=== PATIENT | female | born 1990 | race Caucasian/White ===

== ENCOUNTER 2016-09-09 10:16 | Emergency (ER) | payer OTHER ==
--- NOTE | 2016-09-09 10:00 | CT ---
EXAMINATION TYPE: CT abdomen pelvis wo con DATE OF EXAM: 09/09/2016 9:21 AM COMPARISON: NONE HISTORY: Renal colic Automated exposure control for dose reduction was used. TECHNIQUE: Helical acquisition of images from the lung bases through the pelvis. FINDINGS: LUNG BASES: No significant abnormality is appreciated. Shunt tubing is present within the anterior ab dominal fat coursing into the abdomen on the right and into the pelvis at the distal tip AORTA: No significant abnormality is appreciated. LIVER/GB: Patient is post cholecystectomy. Liver shows no mass on this noncontrast exam. Liver is enl arged however. PANCREAS: No significant abnormality is seen. SPLEEN: Enlarged measuring greater than 14 cm in span. ADRENALS: Low dense mass is associated with the left adrenal gland measuring approximately 3.3 cm in greatest dimension but showing low-attenuation suggestive of fat. KIDNEYS: No hydronephrosis or renal stone REPRODUCTIVE ORGANS: No significant abnormality is seen. URINARY BLADDER: No significant abnormality is seen. BOWEL: No significant abnormality is seen. FREE AIR: No Free Air is visible. ASCITES: None visible. PELVIC ADENOPATHY: None visualized. RETROPERITONEAL ADENOPATHY: No Retroperitoneal Adenopathy visible. OSSEOUS STRUCTURES: No significant abnormality is seen. 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 POSTOP CHANGE. HEPATOSPLENOMEGALY. NONCONTRAST EXAM MAY LIMIT SENSITIV ITY.
[2016-09-09] MEDS ORDERED: PANTOPRAZOLE 40 MG/10 ML VIAL IVP STA (13:12)
[2016-09-09] MEDS ORDERED: HYDROmorphone 1 MG/ML 1 ML SYRINGE IVP STA (13:12)
[2016-09-09] MEDS ORDERED: METOCLOPRAMIDE 5 MG/ML 2 ML VIAL IVP STA (13:12)
[2016-09-09] MEDS ORDERED: SODIUM CHLORIDE 0.9% 500 ML IV STA (13:12)
[2016-09-09] MEDS ORDERED: SODIUM CHLORIDE 0.9% 1,000 ML IV STA (13:12)
--- NOTE | 2016-09-09 13:19 | ED ---
General Adult HPI - General Chief complaint: Recheck/Abnormal Lab/Rx Time Seen by Provider: 09/09/16 12:44 Source: patient, RN notes reviewed, old records reviewed Mode of arrival: ambulatory Limitations: no limitations - History of Present Illness Initial comments: Chief complaint history of present 18-year-old female who was sent to the emergency room after having a CAT scan without contrast of her abdomen. The patient was seen at the clinic yesterday with a complaint of right flank area pain. Radiates around toward the front. Associated mild nausea but no vomiting today one episode of diarrhea yesterday. Labs reported at the office yesterday were positive for blood in the urine. The patient's not complaining any frequency urgency or dysuria. Patient denies ever having had a previous kidney stone. She was sent here today for CAT scan without contrast rule out abdominal pathology. Radiologist states there was no evidence of any hydronephrosis or kidney stones. He does mention that on the adrenal there is a low dense masses associated with a left adrenal gland measuring approximately 3.3 cm. In greatest dimension but showing low attenuation suggestive of that. No other findings are significant other than enlarged liver enlarged spleen. Report was reviewed and made by Dr. Sewell - Related Data Home Medications Medication Instructions Recorded Confirmed Hydrocodone/Acetaminophen [[place] 1 tab PO TID PRN 09/09/16 09/09/16 10-325] Allergies Allergy/AdvReac Type Severity Reaction Status Date / Time sumatriptan [From Imitrex] Allergy Nausea & Verified 09/09/16 11:51 Vomiting sumatriptan succinate Allergy Nausea & Verified 09/09/16 11:51 [From Imitrex] Vomiting Review of Systems ROS Statement: Those systems with pertinent positive or pertinent negative responses have been documented in the HPI. Review of systems. No visual acuity or headache at this time no chest pain no shortness of breath. She has point specific area on her right flank area discomfort increases with palpation and twisting and turning over the area. It seems to radiate somewhat around the right. Patient reports she is oriented gallbladder removed and does not feel like gallbladder pain. Denies any injury that she can remember. No rashes noted. Though early shingles was discussed. Nausea no vomiting one episode of diarrhea. Generally feels somewhat fatigued lately as well. She did not get a flu shot this year. Decreased appetite. No cough. All systems are reviewed. Past medical problems significant for pseudotumor cerebri. She had a SERVICER [employer] MACHIN[employer] shunt placed which significantly improved and decrease the frequency of headaches but now she's been diagnosed with occipital headaches. Further evaluation by her neurologist to continue. The patient's other surgeries include a , cholecystectomy tonsils and adenoids and a pilonidal cyst. Family history mother had hypertension father diabetes. Within the family there is colon cancer, breast cancer and lung cancer. The patient does smoke strongly encouraged to stop for obvious reasons. She denies any alcohol use. ROS Other: All systems not noted in ROS Statement are negative. Past Medical History Additional Past Medical History / Comment(s): psudo tumor, vp customer development shunt History of Any Multi-Drug Resistant Organisms: None Reported Past Surgical History: Section, Cholecystectomy, Tonsillectomy Additional Past Surgical History / Comment(s): pilinidal cyst Past Psychological History: No Psychological Hx Reported Smoking Status: Current every day smoker Past Alcohol Use History: None Reported Past Drug Use History: None Reported General Exam - General Exam Comments Initial Comments: General: The patient is awake and alert, complaining of right flank area pain. Normally takes [place] for her occipital headaches. She ran out her [place] tablets last night. Mild nausea no vomiting. Persistent right flank pain increases with laying down slightly less when sitting forward. Vital signs show temperature 97.8 pulse 83 respiratory rate 20 pulse ox 97% room air blood pressure 143/85. Elevated systolic diastolic noted. Patient is following up with her family physician this week. Eye: Pupils are equal, round and reactive to light, extra-ocular movements are intact ; there is normal conjunctiva bilaterally. No signs of icterus. Ears, nose, mouth and throat: There are moist mucous membranes and no oral lesions. Neck: The neck is supple, there is no tenderness . Cardiovascular: There is a regular rate and rhythm. No murmur, rub or gallop is appreciated. Respiratory: Lungs are clear to auscultation, respirations are non-labored, breath sounds are equal. No wheezes, stridor, rales, or rhonchi. Gastrointestinal: Soft, non-distended, non-tender abdomen without masses or organomegaly noted. There is no rebound or guarding present. No CVA tenderness. Bowel sounds are unremarkable. Complains of nausea no vomiting. Back: No rash noted early shingles and would look for was discussed. Palpation approximately 5 inches ROM the mid thoracic spine was uncomfortable. Nothing palpable. Pain increases no area when she lays down on it or stretches the area. We did discuss discitis and musculoskeletal pain. The CAT scan done this morning does not show any evidence of hydronephrosis or kidney stones. Though the possibility of a passed the stone was discussed or there is still a stone that not seen. Musculoskeletal: Normal ROM, no tenderness, There is no pedal edema. There is no calf tenderness or swelling. Sensation intact. Pulses equal bilaterally 2+. Neurological: No neuro deficits. Skin: No skin rashes Limitations: no limitations Course Vital Signs 09/09/16 09/09/16 09/09/16 11:16 13:54 14:11 Temperature 97.8 F 98.2 F Pulse Rate 83 82 74 Respiratory 20 15 16 Rate Blood Pressure 143/85 117/73 117/73 O2 Sat by Pulse 97 98 96 Oximetry 09/09/16 15:44 Temperature 98.7 F Pulse Rate 77 Respiratory 14 Rate Blood Pressure 121/75 O2 Sat by Pulse 98 Oximetry Medical Decision Making - Medical Decision Making Medical decision making patient's white count 8.6 hemoglobin 16 hematocrit of 48 with a potassium 4.4, BUN is 8 creatinine 0.72 with a GFR greater than 60. Patient's glucose 124. Influenza AB reported to be negative. Urinalysis no signs of infection but there are 4 reds 1 white. Patient was advised to have repeat urinalysis done and make sure the blood goes way otherwise a CT with IV contrast will be suggested to rule out tumor within the kidneys. The patient does present as though she's had renal colic on the right side. We also discussed at length with look for for developing shingles. Patient be follow-up by her family doctor. - Lab Data Result diagrams: 09/09/16 13:45 09/09/16 13:45 Lab Results 09/09/16 09/09/16 09/09/16 Range/Units 12:43 13:45 13:45 WBC (3.8-10.6) k/uL RBC (3.80-5.40) m/uL Hgb (11.4-16.0) gm/dL Hct (34.0-46.0) % MCV (80.0-100.0) fL MCH (25.0-35.0) pg MCHC (31.0-37.0) g/dL RDW (11.5-15.5) % Plt Count (150-450) k/uL Neutrophils % % Lymphocytes % % Monocytes % % Eosinophils % % Basophils % % Neutrophils # (1.3-7.7) k/uL Lymphocytes # (1.0-4.8) k/uL Monocytes # (0-1.0) k/uL Eosinophils # (0-0.7) k/uL Basophils # (0-0.2) k/uL Sodium 142 (137-145) mmol/L Potassium 4.4 (3.5-5.1) mmol/L Chloride 105 (98-107) mmol/L Carbon Dioxide 26 (22-30) mmol/L Anion Gap 11 mmol/L BUN 8 (7-17) mg/dL Creatinine 0.72 (0.52-1.04) mg/dL Est GFR (MDRD) Af Amer >60 (>60 ml/min/1.73 sqM) Est GFR (MDRD) Non-Af >60 (>60 ml/min/1.73 sqM) Glucose 124 H (74-99) mg/dL Plasma Lactic Acid Logan (0.7-2.0) mmol/L Calcium 9.3 (8.4-10.2) mg/dL Total Bilirubin 0.7 (0.2-1.3) mg/dL AST 30 (14-36) U/L ALT 37 (9-52) U/L Alkaline Phosphatase 67 (38-126) U/L Total Protein 6.9 (6.3-8.2) g/dL Albumin 4.1 (3.5-5.0) g/dL Amylase 50 (30-110) U/L Lipase 39 (23-300) U/L Urine Color Yellow Urine Appearance Clear (Clear) Urine pH 6.5 (5.0-8.0) Ur Specific [place] 1.021 (1.001-1.035) Urine Protein Negative (Negative) Urine Glucose (UA) Negative (Negative) Urine Ketones Negative (Negative) Urine Blood Trace H (Negative) Urine Nitrite Negative (Negative) Urine Bilirubin Negative (Negative) Urine Urobilinogen <2.0 (<2.0) mg/dL Ur Leukocyte Esterase Negative (Negative) Urine RBC 4 (0-5) /hpf Urine WBC 1 (0-5) /hpf Ur Squamous Epith Cells 3 (0-4) /hpf Urine Mucus Rare H (None) /hpf Heterophile Antibody Negative (Negative) Influenza Type A RNA (Not Detectd) Influenza Type B (PCR) (Not Detectd) 09/09/16 09/09/16 09/09/16 Range/Units 13:45 13:45 13:45 WBC 8.6 (3.8-10.6) k/uL RBC 5.24 (3.80-5.40) m/uL Hgb 16.2 H (11.4-16.0) gm/dL Hct 48.7 H (34.0-46.0) % MCV 93.0 (80.0-100.0) fL MCH 30.9 (25.0-35.0) pg MCHC 33.2 (31.0-37.0) g/dL RDW 13.2 (11.5-15.5) % Plt Count 196 (150-450) k/uL Neutrophils % 69 % Lymphocytes % 25 % Monocytes % 3 % Eosinophils % 1 % Basophils % 1 % Neutrophils # 5.9 (1.3-7.7) k/uL Lymphocytes # 2.1 (1.0-4.8) k/uL Monocytes # 0.2 (0-1.0) k/uL Eosinophils # 0.1 (0-0.7) k/uL Basophils # 0.1 (0-0.2) k/uL Sodium (137-145) mmol/L Potassium (3.5-5.1) mmol/L Chloride (98-107) mmol/L Carbon Dioxide (22-30) mmol/L Anion Gap mmol/L BUN (7-17) mg/dL Creatinine (0.52-1.04) mg/dL Est GFR (MDRD) Af Amer (>60 ml/min/1.73 sqM) Est GFR (MDRD) Non-Af (>60 ml/min/1.73 sqM) Glucose (74-99) mg/dL Plasma Lactic Acid Logan 1.7 (0.7-2.0) mmol/L Calcium (8.4-10.2) mg/dL Total Bilirubin (0.2-1.3) mg/dL AST (14-36) U/L ALT (9-52) U/L Alkaline Phosphatase (38-126) U/L Total Protein (6.3-8.2) g/dL Albumin (3.5-5.0) g/dL Amylase (30-110) U/L Lipase (23-300) U/L Urine Color Urine Appearance (Clear) Urine pH (5.0-8.0) Ur Specific [place] (1.001-1.035) Urine Protein (Negative) Urine Glucose (UA) (Negative) Urine Ketones (Negative) Urine Blood (Negative) Urine Nitrite (Negative) Urine Bilirubin (Negative) Urine Urobilinogen (<2.0) mg/dL Ur Leukocyte Esterase (Negative) Urine RBC (0-5) /hpf Urine WBC (0-5) /hpf Ur Squamous Epith Cells (0-4) /hpf Urine Mucus (None) /hpf Heterophile Antibody (Negative) Influenza Type A RNA Not Detected (Not Detectd) Influenza Type B (PCR) Not Detected (Not Detectd) Disposition Clinical Impression: Right flank pain Disposition: HOME SELF-CARE Condition: Stable Instructions: Flank Pain (ED) Additional Instructions: Take medications as directed. Get repeat urine done in 1 week to make sure there is no more blood and urine if there is a CT with IV contrast suggested rule out kidney pathology. Use Tylenol for pain. Time of Disposition: 16:04
[2016-09-09 14:02] LABS: Basophils # (A) 0.1 k/uL (0-0.2); Basophils % (A) 1 %; CH 31.4; CHCM 33.9; Eosinophils # (A) 0.1 k/uL (0-0.7); Eosinophils % (A) 1 %; HCT 48.7 % (34.0-46.0); HDW 2.65; HGB 16.2 gm/dL (11.4-16.0); Luc # (Auto) 0.14; Luc % (Auto) 2; Lymphocytes # (A) 2.1 k/uL (1.0-4.8); Lymphocytes % (A) 25 %; MCH 30.9 pg (25.0-35.0); MCHC 33.2 g/dL (31.0-37.0); Mean Platelet Volume 7.7; Monocytes # (A) 0.2 k/uL (0-1.0); Monocytes % (A) 3 %; Neutrophils # (A) 5.9 k/uL (1.3-7.7); Neutrophils % (A) 69 %; RBC 5.24 m/uL (3.80-5.40); RDW 13.2 % (11.5-15.5); WBC 8.6 k/uL (3.8-10.6); WBC (Perox) 8.54
[2016-09-09 14:13] LABS: Appearance,Urine Clear (Clear); Bilirubin,Urine Negative (Negative); Glucose,Urine (UA) Negative (Negative); Ketones,Urine Negative (Negative); Leukocyte Esterase,Urine Negative (Negative); Mucus,Urine Rare /hpf; Nitrite,Urine Negative (Negative); PH, Urine 6.5 (5.0-8.0); Particle Count 4204; Protein,Urine Negative (Negative); RBC,Urine 4 /hpf (0-5); Specific Gravity,Urine 1.021 (1.001-1.035); Squamous Epithelial Cell,Urine 3 /hpf (0-4); UA Billing (MACRO vs. MICRO) MICRO; Urobilinogen,Urine <2.0 mg/dL (<2.0); WBC,Urine 1 /hpf (0-5)
[2016-09-09 14:20] LABS: ALT 37 U/L (9-52); AST 30 U/L (14-36); Alkaline Phosphatase 67 U/L (38-126); Amylase 50 U/L (30-110); Anion Gap 11 mmol/L; Blood Urea Nitrogen 8 mg/dL (7-17); Calcium 9.3 mg/dL (8.4-10.2); Carbon Dioxide 26 mmol/L (22-30); Chloride 105 mmol/L (98-107); Glucose 124 mg/dL (74-99); Non-African American GFR(MDRD) >60 (>60 ml/min/1.73 sqM); Potassium 4.4 mmol/L (3.5-5.1); Sodium 142 mmol/L (137-145); Total Bilirubin 0.7 mg/dL (0.2-1.3); Total Protein 6.9 g/dL (6.3-8.2)
[2016-09-09 15:46] VITALS: PULSE 77
[2016-09-09 16:15] VITALS: BP 139/69; RESP 18; TEMP 97.7
== END 2016-09-09 16:16 | disposition home or self-care (01) ==
LOC: EC 10:16 → EDSTATUS 19:00
DX: R10.9 Unspecified abdominal pain (principal); R31.9 Hematuria, unspecified; E27.9 Disorder of adrenal gland, unspecified; R16.2 Hepatomegaly with splenomegaly, not elsewhere classified; G93.2 Benign intracranial hypertension; F17.200 Nicotine dependence, unspecified, uncomplicated; Z98.2 Presence of cerebrospinal fluid drainage device; Z88.8 Allergy status to other drugs, medicaments and biological substances; Z80.3 Family history of malignant neoplasm of breast; Z80.1 Family history of malignant neoplasm of trachea, bronchus and lung; Z80.0 Family history of malignant neoplasm of digestive organs
CPT/HCPCS: 36415; 80053; 82150; 83605; 83690; 85025; 86308; 81001; 87086; 87502; 74176; 99284; 96374; 96375 ×2; 96361 ×2; J2765; J1170; C9113

== ENCOUNTER → 2016-09-22 | Outpatient (CLI) | payer OTHER ==
--- NOTE | 2016-09-22 11:14 | CT ---
EXAMINATION TYPE: CT abdomen wo/w con DATE OF EXAM: 09/22/2016 11:00 AM COMPARISON: CT abdomen pelvis 02/23/[address] abdomen pelvis 09/09/2016 HISTORY: Left adrenal mass CONTRAST: Omni 300/100 ml was administered through a 20 gauge IV placed in the RAC. pt had mild redness with itching post injection, pt stated no other symptoms and no difficulty breath ing. pt was observed for 10-15 min post procedure with stable vitals, BP 127/90, HR 69, O2 99, discha rged per Dr. Jean and given instructions to take benedryl if needed. Unenhanced followed by contrast enhanced CT of the abdomen was performed. FINDINGS: LUNG BASES-: No visible nodule. No infiltrate. LIVER/GB: Cholecystectomy clips are in place. No space occupying hepatic lesion. Biliary tree is o f normal caliber. PANCREAS: No inflammation. No distinct mass. SPLEEN: No splenic enlargement. No lesion seen. ADRENALS: There is a stable left adrenal nodule dating back to 2008 which measures approximately 3.3 x 1.7 cm and demonstrates only minimal peripheral enhancement. There is central decreased attenuation seen compatible with fat content and left adrenal adenoma. Stable 7 mm right adrenal nodule dating b ack to 2008 as well.. KIDNEYS/BLADDER: No hydronephrosis. No nephrolithiasis. No disctinct renal mass. Urinary bladder g rossly unremarkable. BOWEL: Normal appendix. Normal bowel caliber. No inflammation. LYMPH NODES: No greater than 1cm abdominal or pelvic lymph nodes are appreciated. AORTA: No significant abnormality. OSSEOUS STRUCTURES: No significant abnormality is seen. OTHER: FLOOR COVERER shunt is noted to be in place. IMPRESSION: 1. Stable adrenal adenomas left greater than right.
== END | disposition home or self-care (01) ==
LOC: RADCTMAIN 09:16
PROVIDERS: ATTEND Family Medicine
DX: D35.02 Benign neoplasm of left adrenal gland (principal); D35.01 Benign neoplasm of right adrenal gland
CPT/HCPCS: 74170; Q9967

== ENCOUNTER 2017-10-10 09:13 | Emergency (ER) | payer OTHER ==
[2017-10-10 09:36] VITALS: RESP 18
--- NOTE | 2017-10-10 09:48 | ED ---
General Adult HPI - General Chief complaint: Nausea/Vomiting/Diarrhea Stated complaint: Vomiting Time Seen by Provider: 10/10/17 09:38 Source: patient, RN notes reviewed Mode of arrival: ambulatory Limitations: no limitations - History of Present Illness Initial comments: Patient 27-year-old female presenting to the emergency room today with a chief complaint of bowel pain with nausea vomiting diarrhea over the last 2 days. Patient admits to some fever and chills and body aches. Patient mitts to multiple episodes of diarrhea. Patient states she had 4 episodes of vomiting no signs of blood in the emesis or stool. Patient denies any other complaints symptoms at this time. Patient denies any recent fever, chills, shortness of breath, chest pain, back pain, numbness or tingling, dysuria or hematuria, headaches or visual changes, or any other complaints. - Related Data Previous Rx's Medication Instructions Recorded Ondansetron Odt [Zofran ODT] 4 mg PO Q8HR PRN #20 tab 10/10/17 Allergies Allergy/AdvReac Type Severity Reaction Status Date / Time Iodinated Contrast- Oral and Allergy Rash/Hives Verified 10/10/17 09:43 IV Dye sumatriptan [From Imitrex] Allergy Nausea & Verified 10/10/17 09:43 Vomiting sumatriptan succinate Allergy Nausea & Verified 10/10/17 09:43 [From Imitrex] Vomiting iohexol AdvReac Itching Verified 10/10/17 09:43 Review of Systems ROS Statement: Those systems with pertinent positive or pertinent negative responses have been documented in the HPI. ROS Other: All systems not noted in ROS Statement are negative. Past Medical History Additional Past Medical History / Comment(s): psudo tumor, vp informatics shunt History of Any Multi-Drug Resistant Organisms: None Reported Past Surgical History: Section, Cholecystectomy, Tonsillectomy Additional Past Surgical History / Comment(s): pilinidal cyst Past Psychological History: No Psychological Hx Reported Smoking Status: Current every day smoker Past Alcohol Use History: None Reported Past Drug Use History: None Reported General Exam - General Exam Comments Initial Comments: General: The patient is awake and alert, in no distress, and does not appear acutely ill. Eye: Pupils are equal, round and reactive to light, extra-ocular movements are intact. No nystagmus. There is normal conjunctiva bilaterally. No signs of icterus. Ears, nose, mouth and throat: There are moist mucous membranes and no oral lesions. Neck: The neck is supple, there is no tenderness or JVD. Cardiovascular: There is a regular rate and rhythm. No murmur, rub or gallop is appreciated. Respiratory: Lungs are clear to auscultation, respirations are non-labored, breath sounds are equal. No wheezes, stridor, rales, or rhonchi. Gastrointestinal: Abdomen soft on palpation. Patient does have tenderness epigastric. No rebound tenderness. No guarding. No CVA tenderness. Musculoskeletal: Normal ROM, no tenderness. Strength 5/5. Sensation intact. Pulses equal bilaterally 2+. Neurological: A&O x 3. CN II-XII intact, There are no obvious motor or sensory deficits. Coordination appears grossly intact. Speech is normal. Skin: Skin is warm and dry and no rashes or lesions are noted. Psychiatric: Cooperative, appropriate mood & affect, normal judgment. Limitations: no limitations Course Vital Signs 10/10/17 09:34 Temperature 99.1 F Pulse Rate 71 Respiratory 18 Rate Blood Pressure 120/68 O2 Sat by Pulse 97 Oximetry Medical Decision Making - Medical Decision Making Patient reexamined at this time shows no signs of distress. Patient doing well at this time. Patient's symptoms improved. Patient's urinalysis review does show large amount of epithelial cells. Culture pending. Patient denies any urinary tract infection symptoms at this time. Patient doing well with nausea medication and fluids. Patient will be discharged home with Zofran for her symptoms. Advised to follow-up family physician return to emergency room symptoms increase or worsen - Lab Data Result diagrams: 10/10/17 09:53 10/10/17 09:53 Lab Results 10/10/17 10/10/17 10/10/17 Range/Units 09:53 09:53 09:53 WBC 8.4 (3.8-10.6) k/uL RBC 5.65 H (3.80-5.40) m/uL Hgb 17.6 H (11.4-16.0) gm/dL Hct 50.0 H (34.0-46.0) % MCV 88.4 (80.0-100.0) fL MCH 31.2 (25.0-35.0) pg MCHC 35.3 (31.0-37.0) g/dL RDW 12.8 (11.5-15.5) % Plt Count 202 (150-450) k/uL Neutrophils % 84 % Lymphocytes % 12 % Monocytes % 3 % Eosinophils % 1 % Basophils % 0 % Neutrophils # 7.0 (1.3-7.7) k/uL Lymphocytes # 1.0 (1.0-4.8) k/uL Monocytes # 0.3 (0-1.0) k/uL Eosinophils # 0.1 (0-0.7) k/uL Basophils # 0.0 (0-0.2) k/uL Sodium 142 (137-145) mmol/L Potassium 4.7 (3.5-5.1) mmol/L Chloride 106 (98-107) mmol/L Carbon Dioxide 23 (22-30) mmol/L Anion Gap 13 mmol/L BUN 10 (7-17) mg/dL Creatinine 0.73 (0.52-1.04) mg/dL Est GFR (CKD-EPI)AfAm >90 (>60 ml/min/1.73 sqM) Est GFR (CKD-EPI)NonAf >90 (>60 ml/min/1.73 sqM) Glucose 111 H (74-99) mg/dL Calcium 9.6 (8.4-10.2) mg/dL Total Bilirubin 1.0 (0.2-1.3) mg/dL AST 32 (14-36) U/L ALT 33 (9-52) U/L Alkaline Phosphatase 83 (38-126) U/L Total Protein 7.3 (6.3-8.2) g/dL Albumin 4.3 (3.5-5.0) g/dL Amylase 44 (30-110) U/L Lipase 46 (23-300) U/L Urine Color Urine Appearance (Clear) Urine pH (5.0-8.0) Ur Specific [place] (1.001-1.035) Urine Protein (Negative) Urine Glucose (UA) (Negative) Urine Ketones (Negative) Urine Blood (Negative) Urine Nitrite (Negative) Urine Bilirubin (Negative) Urine Urobilinogen (<2.0) mg/dL Ur Leukocyte Esterase (Negative) Urine RBC (0-5) /hpf Urine WBC (0-5) /hpf Ur Squamous Epith Cells (0-4) /hpf Urine Bacteria (None) /hpf Urine Mucus (None) /hpf Urine HCG, Qual Not Detected (Not Detectd) Influenza Type A RNA (Not Detectd) Influenza Type B (PCR) (Not Detectd) 10/10/17 10/10/17 Range/Units 09:53 09:53 WBC (3.8-10.6) k/uL RBC (3.80-5.40) m/uL Hgb (11.4-16.0) gm/dL Hct (34.0-46.0) % MCV (80.0-100.0) fL MCH (25.0-35.0) pg MCHC (31.0-37.0) g/dL RDW (11.5-15.5) % Plt Count (150-450) k/uL Neutrophils % % Lymphocytes % % Monocytes % % Eosinophils % % Basophils % % Neutrophils # (1.3-7.7) k/uL Lymphocytes # (1.0-4.8) k/uL Monocytes # (0-1.0) k/uL Eosinophils # (0-0.7) k/uL Basophils # (0-0.2) k/uL Sodium (137-145) mmol/L Potassium (3.5-5.1) mmol/L Chloride (98-107) mmol/L Carbon Dioxide (22-30) mmol/L Anion Gap mmol/L BUN (7-17) mg/dL Creatinine (0.52-1.04) mg/dL Est GFR (CKD-EPI)AfAm (>60 ml/min/1.73 sqM) Est GFR (CKD-EPI)NonAf (>60 ml/min/1.73 sqM) Glucose (74-99) mg/dL Calcium (8.4-10.2) mg/dL Total Bilirubin (0.2-1.3) mg/dL AST (14-36) U/L ALT (9-52) U/L Alkaline Phosphatase (38-126) U/L Total Protein (6.3-8.2) g/dL Albumin (3.5-5.0) g/dL Amylase (30-110) U/L Lipase (23-300) U/L Urine Color Yellow Urine Appearance Turbid H (Clear) Urine pH 5.5 (5.0-8.0) Ur Specific [place] 1.026 (1.001-1.035) Urine Protein 1+ H (Negative) Urine Glucose (UA) Negative (Negative) Urine Ketones 3+ H (Negative) Urine Blood Small H (Negative) Urine Nitrite Negative (Negative) Urine Bilirubin Negative (Negative) Urine Urobilinogen 3.0 (<2.0) mg/dL Ur Leukocyte Esterase Large H (Negative) Urine RBC 14 H (0-5) /hpf Urine WBC 47 H (0-5) /hpf Ur Squamous Epith Cells 36 H (0-4) /hpf Urine Bacteria Occasional H (None) /hpf Urine Mucus Occasional H (None) /hpf Urine HCG, Qual (Not Detectd) Influenza Type A RNA Not Detected (Not Detectd) Influenza Type B (PCR) Not Detected (Not Detectd) Disposition Clinical Impression: Nausea vomiting and diarrhea Disposition: HOME SELF-CARE Condition: Good Instructions: Acute Nausea and Vomiting (ED), Acute Diarrhea (ED) Additional Instructions: Please use nausea medication of Zofranthat has been sent to your pharmacy. Please follow-up with family doctor in the next 2 days of symptoms have not improved. Please return to emergency room if the symptoms increase or worsen or for any other concerns. Prescriptions: Ondansetron Odt [Zofran ODT] 4 mg PO Q8HR PRN #20 tab PRN Reason: Nausea Is patient prescribed a controlled substance at discharge?: No Referrals: Papo Mcdonnell DO [Primary Care Provider] - 1-2 days Time of Disposition: 11:17
[2017-10-10] MEDS ORDERED: SODIUM CHLORIDE 0.9% 1,000 ML IV STA (10:01)
[2017-10-10] MEDS ORDERED: ONDANSETRON 4 MG/2 ML VIAL IVP STA (10:01)
[2017-10-10] MEDS ORDERED: FAMOTIDINE 20 MG/2 ML VIAL IV STA (10:01)
[2017-10-10 10:33] LABS: ALT 33 U/L (9-52); AST 32 U/L (14-36); Albumin 4.3 g/dL (3.5-5.0); Alkaline Phosphatase 83 U/L (38-126); Amylase 44 U/L (30-110); Anion Gap 13 mmol/L; Blood Urea Nitrogen 10 mg/dL (7-17); Calcium 9.6 mg/dL (8.4-10.2); Carbon Dioxide 23 mmol/L (22-30); Chloride 106 mmol/L (98-107); Glucose 111 mg/dL (74-99); Lipase 46 U/L (23-300); Potassium 4.7 mmol/L (3.5-5.1); Sodium 142 mmol/L (137-145); Total Protein 7.3 g/dL (6.3-8.2)
[2017-10-10 10:35] LABS: Appearance,Urine Turbid (Clear); Bacteria,Urine Occasional /hpf; Bilirubin,Urine Negative (Negative); Blood,Urine Small (Negative); Color,Urine Yellow; Glucose,Urine (UA) Negative (Negative); Ketones,Urine 3+ (Negative); Leukocyte Esterase,Urine Large (Negative); Mucus,Urine Occasional /hpf; Nitrite,Urine Negative (Negative); PH, Urine 5.5 (5.0-8.0); Protein,Urine 1+ (Negative); RBC,Urine 14 /hpf (0-5); Specific Gravity,Urine 1.026 (1.001-1.035); Squamous Epithelial Cell,Urine 36 /hpf (0-4); WBC,Urine 47 /hpf (0-5)
[2017-10-10 10:38] LABS: Basophils % (A) 0 %; Eosinophils # (A) 0.1 k/uL (0-0.7); Eosinophils % (A) 1 %; HGB 17.6 gm/dL (11.4-16.0); Lymphocytes % (A) 12 %; MCH 31.2 pg (25.0-35.0); MCHC 35.3 g/dL (31.0-37.0); MCV 88.4 fL (80.0-100.0); Mean Platelet Volume 8.2; Monocytes # (A) 0.3 k/uL (0-1.0); Monocytes % (A) 3 %; Neutrophils % (A) 84 %; Platelet Count 202 k/uL (150-450); RBC 5.65 m/uL (3.80-5.40); RDW 12.8 % (11.5-15.5); WBC 8.4 k/uL (3.8-10.6)
--- NOTE | 2017-10-10 10:59 | XR ---
Abdomen HISTORY: Pain and vomiting Frontal view of the abdomen submitted on 2 images and correlated to prior abdomen CT 09/22/2016 Ventricular peritoneal shunt tubing is noted and is coiled in the right hemiabdomen. Lung bases are c lear. No pneumoperitoneum or bowel obstruction. Surgical clips present in the right hemiabdomen, righ t quadrant. Metallic densities within the abdomen may be due to luminal radiodense medication. Correl ate. There are some air-fluid levels without bowel distention. IMPRESSION: Correlate for enteritis, follow-up as indicated.
[2017-10-10 11:27] VITALS: BP 113/62; PULSE 60; TEMP 98.6
== END 2017-10-10 11:20 | disposition home or self-care (01) ==
LOC: EC 09:13
DX: R11.2 Nausea with vomiting, unspecified (principal); R19.7 Diarrhea, unspecified; F17.200 Nicotine dependence, unspecified, uncomplicated; Z88.8 Allergy status to other drugs, medicaments and biological substances; Z91.041 Radiographic dye allergy status
CPT/HCPCS: 36415; 80053; 82150; 83690; 85025; 81001; 81025; 87040; 87086; 87502; 74018; 99284; 96374; 96375; 96361; J2405

== ENCOUNTER → 2017-12-22 | Outpatient (CLI) | payer OTHER ==
--- NOTE | 2017-12-22 12:35 | MR ---
EXAMINATION TYPE: MR brain wo/w con DATE OF EXAM: 12/22/2017 COMPARISON: CT brain October 2013. MRI brain February 04, 2014. HISTORY: Head pain (R 51) per order. History of ENROLLMENT MANAGEMENT COORDINATOR shunt placement with posterior pain per patient. TECHNIQUE: Multiplanar, multisequence imaging of the brain and brainstem is performed without IV cont rast. FINDINGS: Diffusion weighted images demonstrate no evidence of a recent infarct or other diffusion abnormality. There is no extraaxial fluid collection or significant white matter signal abnormality. There is pers istent artifact from right parietal ENROLLMENT MANAGEMENT COORDINATOR shunt catheter terminating in right lateral ventricle with asy mmetric right-sided decompression. No significant change from prior studies. Subtle midline shift to the right is stable. Midline structures demonstrate normal morphology. The craniocervical junction appears within normal limits. Normal vascular flow voids are present. The visualized sinuses are clear and the globes are i ntact. IMPRESSION: Stable right sided ENROLLMENT MANAGEMENT COORDINATOR shunt catheter with diminished size to right sided ventricular syst em and stable midline shift. No significant change from prior studies. Prior MRI report noted stabili ty of this finding from older CT November 18, 2008.
--- NOTE | 2017-12-22 14:00 | MR ---
EXAMINATION TYPE: MR jacintaine/lspine wo con DATE OF EXAM: 12/22/2017 COMPARISON: MRI cervical spine September 14, 2014. CT abdomen and pelvis September 09, 2016. HISTORY: Neck/low back pain per order. Headache with neck pain for over 6 years per patient causing p ain or weakness into right arm and fingers low back pain for over 2 years causing pain into bilateral buttocks per patient. TECHNIQUE: Multiplanar, multisequence imaging of the cervical and lumbar spine are performed without IV contrast. FINDINGS: C-SPINE: FINDINGS: Sagittal images of the cervical spine show the craniocervical junction to remain within nor mal limits. The cervical and upper thoracic spinal cord is normal in course, caliber, and signal. V ertebral alignment is stable and straightened. The vertebral body and intravertebral disk heights ar e normal. No suspicious posterior disc herniations are seen on sagittal images. No significant spurri ng is present. The bone marrow signal intensity is within normal limits. Axial images show there is no significant focal disk disease, spinal canal stenosis, neural foraminal narrowing, or spinal cord compromise at any cervical level. IMPRESSION: Straightening of cervical spine otherwise unremarkable study. No significant change from prior. L-SPINE: Sagittal images of the lumbar spine show vertebral body heights and alignment to appear satisfactory. The intervertebral discs demonstrate normal heights and hydration. The conus medullaris is normal i n position and signal ending at inferior L1 level. The bone marrow signal intensity is within normal limits. No significant spurring is seen. Axial images show no focal disc disease, or facet degenerative change at any lumbar level. There is no spinal canal stenosis, neural foraminal narrowing, or evidence of nerve root compromise. No suspic ious new retroperitoneal findings are seen. 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 Paraspinal muscle bul k is maintained bilaterally. IMPRESSION: No suspicious finding is seen to account for patient's symptoms.
== END | disposition home or self-care (01) ==
LOC: RADMRIMAIN 10:47
PROVIDERS: ATTEND Nurse Practitioner Acute Care
DX: M43.8X2 Other specified deforming dorsopathies, cervical region (principal); M54.5 Low back pain; R51 Headache; Z98.2 Presence of cerebrospinal fluid drainage device
CPT/HCPCS: 70553; 72141; 72148; A9581

== ENCOUNTER → 2020-04-15 | Outpatient (CLI) | payer OTHER ==
--- NOTE | 2020-04-15 17:13 | P.HPBAR ---
Bariatric H&P - History & Physicial H&P Date: 04/15/20 History & Physicial: Visit/CC: Patient initial contact: Initial weight: Initial weight in pounds: Height: 5 ft 4.5 in Initial BMI: Last weight: Current weight: 141.067 kg Current weight in pounds: Current BMI: [place] body weight (based on NIH guidelines): Excess body weight loss: The patient is a 30 year-old F who presents for Bariatric Assessment. DATE OF SERVICE: 04/15/2020 REASON FOR CONSULTATION: Initial bariatric evaluation. HISTORY OF PRESENT ILLNESS: Mariana Olsen is a 30-year-old female who comes with lifelong morbid obesity. She is looking into weight loss surgery as a single mother. She has tried low fat diet. She has a ventricular peritoneal T[employer] APPRAISER shunt and has troubles with exercising. She sees a neurologist and neurosurgeon. She reports sticking in the brain from her T[employer]ERSON[employer] APPRAISER shunt. She is looking into the gastric bypass. She needs a revision of her TANG[employer]ERSON[employer] APPRAISER shunt. She has a sister with a gastric bypass. She is a smoker. She has gastroesophageal reflux disease. Her highest weight is present. She wants to be 180 pounds. Her previous weight loss was down 250 to 260 pounds. She denies family history of inflammatory bowel disease. She presents to me in consultation for weight loss surgery. At height of 5 feet 4.5 inches, her ideal body weight is 144 pounds. She comes in 310 pounds. Her body mass index is 52.6. She is 166 pounds overweight. PAST MEDICAL HISTORY: 1. Morbid obesity due to excess calories 2. Body mass index of 38.0, initial 3. Pseudotumor cerebri PAST SURGICAL HISTORY: 1. section 2. Cholecystectomy 3. Tonsillectomy 4. Pilonidal cyst 5. TANGIBLE PERSON[employer] PROP[employer] APPRAISER shunt placement HOME MEDICATIONS: Home Medications Medication Instructions Recorded Confirmed No Known Home Medications 04/16/20 04/16/20 ALLERGIES: Allergies Allergy/AdvReac Type Severity Reaction Status Date / Time Iodinated Contrast Media Allergy Rash/Hives Verified 04/15/20 16:58 [Iodinated Contrast- Oral and IV Dye] sumatriptan [From Imitrex] Allergy Nausea & Verified 04/15/20 16:58 Vomiting sumatriptan succinate Allergy Nausea & Verified 04/15/20 16:58 [From Imitrex] Vomiting iohexol AdvReac Itching Verified 04/15/20 16:58 SOCIAL HISTORY: Tobacco use. FAMILY HISTORY: No family history of ulcerative colitis disease or Crohn's disease. Family history of morbid obesity. No lupus in the family. No reports of stomach or esophageal cancer. REVIEW OF ORGAN SYSTEMS: CONSTITUTIONAL: At height of 5 feet 4.5 inches, her ideal body weight is 144 pounds. She comes in 310 pounds. Her body mass index is 52.6. She is 166 pounds overweight. HEENT: Denies any active troubles with vision or hearing. ENDOCRINE: No diabetes. No hypothyroidism. CARDIOVASCULAR: Past reports of palpitations or heart attacks or chest pain. RESPIRATORY: Has daytime somnolence. Denies asthma. GASTROINTESTINAL: Denies any bright red blood per rectum. No diarrhea. No constipation. MUSCULOSKELETAL: Has lower back pain and joint pain. NEURO: No headaches. No seizure disorders. PSYCH: Denies depression. No suicidal ideation. RHEUMATOLOGIC: No lupus. No rheumatoid arthritis. HEMATOLOGIC: Denies any abnormal bleeding or bruising. No personal history of DVTs. SKIN: No rash. No skin cancer. PHYSICAL EXAM: VITAL SIGNS: Height 5 foot 4.5 inches, weight 310 pounds. BMI 52.6 Vital Signs Temp 98.7 F 04/15/20 16:59 Pulse 128 H 04/15/20 16:59 Resp 20 04/15/20 16:59 BP 131/86 04/15/20 16:59 Pulse Ox GENERAL: Well-developed in no acute distress. HEENT: No scleral icterus. Extraocular movements grossly intact. Hears conversational speech. No nasal drainage. NECK: Supple without lymphadenopathy. CHEST: Nonlabored respirations with equal bilateral excursions. CARDIOVASCULAR: Tachycardic. Distal 2+ pulses. ABDOMEN: Obese, soft, nontender, nondistended. MUSCULOSKELETAL: No clubbing, cyanosis. NEURO: No focal or lateralizing signs. Cranial nerves 2 through 12 grossly within normal limits. PSYCH: Appropriate affect. Alert and oriented to person, place and time. SKIN: Good skin turgor. Well perfused. ASSESSMENT: 1. Morbid obesity due to excess calories 2. Body mass index of 38.0, initial 3. Pseudotumor cerebri 4. Supraventricular tachycardia 5. Tobacco abuse disorder 6. TANGIBLE PERSONAL PROPERTY APPRAISER shunt malfunction PLAN: 1. Surgical options including a band, gastric bypass, sleeve gastrectomy were described in detail. Alternatives such as gastric balloon including duodenal switch were described. She is looking into the gastric bypass. 2. The [place] bariatric surgical collaborative data and outcomes calculator were described with surgical options. 3. Recommend a bariatric metabolic panel to evaluate for micro- including macronutrient deficiencies. 4. For history of daytime somnolence, recommend evaluation and treatment for sleep apnea. 5. Dietary surveillance and counseling was reviewed. Increased protein intake over 65 grams daily advised. 6. Will need cardiac risk assessment. 7. Recommend medical risk assessment. 8. Psych assessment per insurance guidelines. 9. Recommend upper endoscopy. 10. Recommend 12-lead EKG. 11. She actively smokes and recommend strict tobacco cessation and urine drug screen advised 12. She has TANGIBLE PERSONAL PROPERTY APPRAISER shunt which may be contraindicated for a gastric bypass 13. Will need neurosurgeon and neurologist clearance. Thank you for this consultation. Past Medical History Additional Past Medical History / Comment(s): psudo tumor, evp strategy shunt History of Any Multi-Drug Resistant Organisms: None Reported Past Surgical History: Section, Cholecystectomy, Tonsillectomy Additional Past Surgical History / Comment(s): pilinidal cyst Past Psychological History: No Psychological Hx Reported Past Alcohol Use History: None Reported Past Drug Use History: None Reported Bariatric Checklist Checklist: Plan: Checklist: EGD: 1. Hiatal hernia: 2. H. Pylori: HgbA1c: Vitamin D: Smoking: Current every day smoker Primary care physician referral: Psychiatry clearance: Cardiology clearance: Sleep study: Diet journal: VTE risk score: VTE risk level: Rehab needs at discharge:
[2020-04-15 17:19] VITALS: BP 131/86; PULSE 128; RESP 20; TEMP 98.7; BMI 52.5
== END | disposition home or self-care (01) ==
LOC: BARWHC3 16:21
PROVIDERS: ATTEND Surgery Plastic and Reconstructive Surgery
DX: E66.01 Morbid (severe) obesity due to excess calories (principal); G93.2 Benign intracranial hypertension; I47.1 Supraventricular tachycardia; T85.09XA Other mechanical complication of ventricular intracranial (communicating) shunt, initial encounter; Z68.38 Body mass index [BMI] 38.0-38.9, adult; Z72.0 Tobacco use; Z83.49 Family history of other endocrine, nutritional and metabolic diseases; Z91.041 Radiographic dye allergy status; Z88.8 Allergy status to other drugs, medicaments and biological substances
CPT/HCPCS: 99211

== ENCOUNTER 2020-07-10 15:23 | Emergency (ER) | payer OTHER ==
[2020-07-10 15:36] VITALS: RESP 18
--- NOTE | 2020-07-10 15:51 | ED ---
General Adult HPI - General Chief complaint: Dizziness Stated complaint: Lightheaded,Dizziness,SOB Time Seen by Provider: 07/10/20 15:39 Source: patient Mode of arrival: wheelchair Limitations: no limitations - History of Present Illness Initial comments: Dictation was produced using [employer] dictation software. please excuse any grammatical, word or spelling errors. This patient was cared for during a federal and state declared state of emergenc y secondary to Covid 19 Chief Complaint: 30-year-old female with no significant past medical history presents with chest pain History of Present Illness: Is a 30-year-old female she has no significant past medical history. She states over the last month or so she's been having aching chest pain and dizziness. She has been having these symptoms intermittently for the last month and a half. She went to the walk-in clinic yesterday and had an EKG performed. She was told to the emergency room however she decided not to. Patient's asymptomatic at this time. She states that sometimes her symptoms are worse with walking. States it's worse when she takes a deep breath. She was to ld by walk-in clinic that she has signs and symptoms concerning for ACS versus pulmonary embolus. Patient denies any history of pulmonary emboli or DVT. She denies . She has no recent travel. She takes no medications. Patient states that the pain is to her left lateral chest and worse with deep inspiration. She has no cough or upper respiratory infectious symptoms. No exposure to anybody with coronavirus. She reports she has strong family history of acute coronary syndrome and coronary artery disease on both her maternal and paternal sides. The ROS documented in this emergency department record has been reviewed and confirmed by me. Those systems with pertinent positive or negative responses have been documented in the HPI. All other systems are other negative and/or n oncontributory. PHYSICAL EXAM: General Impression: Alert and oriented x3, not in acute distress HEENT: Normocephalic atraumatic, extra-ocular movements intact, pupils equal and reactive to light bilaterally, mucous membranes moist. Cardiovascular: Heart regular rate and rhythm Chest: Able to complete full sentences, no retractions, no tachypnea Abdomen: abdomen soft, non-tender, non-distended, no organomegaly Musculoskeletal: Pulses present and equal in all extremities, no peripheral edema Motor: no focal deficits noted Neurological: CN II-XII grossly intact, no focal motor or sensory deficits noted Skin: Intact with no visualized rashes Psych: Normal affect and mood ED course: 30 yo Female with clinical presentation consistent with atypical chest pain with typical features. Signs upon arrival are within acceptable limits. EKG reviewed from walking clinic showing isolated T-wave inversion in lead 3. That EKG was nonspecific. Show any signs of ischemia or infarction. EKG interpretation: Ventricular rate of 80, normal sinus rhythm, UT interval 154, QRS 90, QTc 453. No UT prolongation, no QTC prolongation. Isolated T-wave inversion in lead 3. No other abnormalities. This seems to be similar to the EKG performed at the walk-in clinic. Overall this EKG is nonspecific. Laboratory evaluation obtained. Coag panel unremarkable. D-dimer is negative. Metabolic panel is negative. Troponin is negative. Chest x-ray is nonacute. Discussed with patient that all of her blood work currently looks unremarkable however to on suddenly rule out acute coronary event I recommended to her that she should at least stay for a second troponin 3 hours after the first. Patient declined and would prefer to be discharged. Patient does not have any high-risk features currently. She is told to follow-up with her primary care physician for outpatient cardiac stress test. Return parameters discussed. Patient be discharged. - Related Data Home Medications Medication Instructions Recorded Confirmed Famotidine [Pepcid] 20 mg PO DAILY PRN 07/10/20 07/10/20 Allergies Allergy/AdvReac Type Severity Reaction Status Date / Time Iodinated Contrast Media Allergy Rash/Hives Verified 07/10/20 16:13 [Iodinated Contrast- Oral and IV Dye] sumatriptan [From Imitrex] Allergy Nausea & Verified 07/10/20 16:13 Vomiting sumatriptan succinate Allergy Nausea & Verified 07/10/20 16:13 [From Imitrex] Vomiting iohexol AdvReac Itching Verified 07/10/20 16:13 Review of Systems ROS Statement: Those systems with pertinent positive or pertinent negative responses have been documented in the HPI. ROS Other: All systems not noted in ROS Statement are negative. Past Medical History Additional Past Medical History / Comment(s): psudo tumor, evp of products [employer] founder shunt History of Any Multi-Drug Resistant Organisms: MRSA Date of last positivie culture/infection: 2008 MDRO Source:: groin Past Surgical History: Section, Cholecystectomy, Tonsillectomy Additional Past Surgical History / Comment(s): pilinidal cyst Past Anesthesia/Blood Transfusion Reactions: No Reported Reaction Past Psychological History: Anxiety, Depression Smoking Status: Current every day smoker Past Alcohol Use History: None Reported Past Drug Use History: Marijuana General Exam Limitations: no limitations Course Vital Signs 07/10/20 07/10/20 15:31 16:51 Temperature 98.7 F Pulse Rate 75 77 Respiratory 18 18 Rate Blood Pressure 126/77 122/53 O2 Sat by Pulse 98 99 Oximetry Medical Decision Making - Lab Data Result diagrams: 07/10/20 16:05 07/10/20 16:05 Lab Results 07/10/20 07/10/20 07/10/20 Range/Units 16:05 16:05 16:05 WBC 10.6 (3.8-10.6) k/uL RBC 5.25 (3.80-5.40) m/uL Hgb 16.6 H (11.4-16.0) gm/dL Hct 47.3 H (34.0-46.0) % MCV 90.2 (80.0-100.0) fL MCH 31.6 (25.0-35.0) pg MCHC 35.0 (31.0-37.0) g/dL RDW 13.5 (11.5-15.5) % Plt Count 217 (150-450) k/uL MPV 8.4 Neutrophils % 74 % Lymphocytes % 19 % Monocytes % 4 % Eosinophils % 3 % Basophils % 1 % Neutrophils # 7.8 H (1.3-7.7) k/uL Lymphocytes # 2.0 (1.0-4.8) k/uL Monocytes # 0.4 (0-1.0) k/uL Eosinophils # 0.3 (0-0.7) k/uL Basophils # 0.1 (0-0.2) k/uL PT 10.2 (9.0-12.0) sec INR 0.9 (<1.2) APTT 23.4 (22.0-30.0) sec D-Dimer 0.23 (<0.60) mg/L FEU Sodium 138 (137-145) mmol/L Potassium 4.7 (3.5-5.1) mmol/L Chloride 106 (98-107) mmol/L Carbon Dioxide 25 (22-30) mmol/L Anion Gap 7 mmol/L BUN 7 (7-17) mg/dL Creatinine 0.69 (0.52-1.04) mg/dL Est GFR (CKD-EPI)AfAm >90 (>60 ml/min/1.73 sqM) Est GFR (CKD-EPI)NonAf >90 (>60 ml/min/1.73 sqM) Glucose 106 H (74-99) mg/dL Calcium 9.4 (8.4-10.2) mg/dL Troponin I (0.000-0.034) ng/mL 07/10/20 Range/Units 16:05 WBC (3.8-10.6) k/uL RBC (3.80-5.40) m/uL Hgb (11.4-16.0) gm/dL Hct (34.0-46.0) % MCV (80.0-100.0) fL MCH (25.0-35.0) pg MCHC (31.0-37.0) g/dL RDW (11.5-15.5) % Plt Count (150-450) k/uL MPV Neutrophils % % Lymphocytes % % Monocytes % % Eosinophils % % Basophils % % Neutrophils # (1.3-7.7) k/uL Lymphocytes # (1.0-4.8) k/uL Monocytes # (0-1.0) k/uL Eosinophils # (0-0.7) k/uL Basophils # (0-0.2) k/uL PT (9.0-12.0) sec INR (<1.2) APTT (22.0-30.0) sec D-Dimer (<0.60) mg/L FEU Sodium (137-145) mmol/L Potassium (3.5-5.1) mmol/L Chloride (98-107) mmol/L Carbon Dioxide (22-30) mmol/L Anion Gap mmol/L BUN (7-17) mg/dL Creatinine (0.52-1.04) mg/dL Est GFR (CKD-EPI)AfAm (>60 ml/min/1.73 sqM) Est GFR (CKD-EPI)NonAf (>60 ml/min/1.73 sqM) Glucose (74-99) mg/dL Calcium (8.4-10.2) mg/dL Troponin I <0.012 (0.000-0.034) ng/mL Disposition Clinical Impression: Chest pain Disposition: HOME SELF-CARE Condition: Good Instructions (If sedation given, give patient instructions): Chest Pain (ED) Additional Instructions: Follow-up with Primary care physician for outpatient cardiac stress test. Seek medical attention immediately if you develop substernal chest pressure or any worsening symptoms. Is patient prescribed a controlled substance at d/c from ED?: No Referrals: Papo Mcdonnell DO [Primary Care Provider] - 1-2 days Time of Disposition: 17:12
[2020-07-10 16:17] LABS: Basophils # (A) 0.1 k/uL (0-0.2); Basophils % (A) 1 %; Eosinophils # (A) 0.3 k/uL (0-0.7); Eosinophils % (A) 3 %; HCT 47.3 % (34.0-46.0); HGB 16.6 gm/dL (11.4-16.0); Lymphocytes % (A) 19 %; MCH 31.6 pg (25.0-35.0); MCV 90.2 fL (80.0-100.0); Mean Platelet Volume 8.4; Monocytes # (A) 0.4 k/uL (0-1.0); Monocytes % (A) 4 %; Neutrophils # (A) 7.8 k/uL (1.3-7.7); Neutrophils % (A) 74 %; Platelet Count 217 k/uL (150-450); RBC 5.25 m/uL (3.80-5.40); RDW 13.5 % (11.5-15.5); WBC 10.6 k/uL (3.8-10.6)
[2020-07-10 16:25] LABS: African American GFR (CKD) >90 (>60 ml/min/1.73 sqM); Anion Gap 7 mmol/L; Blood Urea Nitrogen 7 mg/dL (7-17); Calcium 9.4 mg/dL (8.4-10.2); Carbon Dioxide 25 mmol/L (22-30); Chloride 106 mmol/L (98-107); Glucose 106 mg/dL (74-99); Non-African American GFR(CKD) >90 (>60 ml/min/1.73 sqM); Potassium 4.7 mmol/L (3.5-5.1); Sodium 138 mmol/L (137-145)
--- NOTE | 2020-07-10 16:28 | XR ---
EXAMINATION TYPE: XR chest 1V portable DATE OF EXAM: 07/10/2020 COMPARISON: CXR from 09/23/2009. HISTORY: Chest pain and dizziness for 2 days. History of shunt. TECHNIQUE: Single AP portable frontal upright view of the chest is obtained. FINDINGS: There is no suspicious new focal air space opacity, pleural effusion, or pneumothorax seen . The cardiac silhouette size is upper limits of normal currently. Redemonstration of right-sided shunt catheter terminating in the SVC. The osseous structures are intact. IMPRESSION: No acute process.
[2020-07-10 16:52] VITALS: BP 122/53; PULSE 77
[2020-07-10 16:59] LABS: D-Dimer 0.23 mg/L FEU (<0.60); INR 0.9 (<1.2); Partial Thromboplastin Time 23.4 sec (22.0-30.0); Prothrombin Time 10.2 sec (9.0-12.0)
[2020-07-10 17:43] VITALS: TEMP 98.3
== END 2020-07-10 17:41 | disposition home or self-care (01) ==
LOC: EC 15:23
DX: R07.89 Other chest pain (principal); R42 Dizziness and giddiness; F17.200 Nicotine dependence, unspecified, uncomplicated; Z86.14 Personal history of Methicillin resistant Staphylococcus aureus infection; Z88.8 Allergy status to other drugs, medicaments and biological substances; Z91.041 Radiographic dye allergy status; Z90.49 Acquired absence of other specified parts of digestive tract; Z90.89 Acquired absence of other organs; Z82.49 Family history of ischemic heart disease and other diseases of the circulatory system
CPT/HCPCS: 36415; 71045; 80048; 84484; 85025; 85379; 85610; 85730; 93005; 99284

== ENCOUNTER → 2021-10-22 | Outpatient (CLI) | payer OTHER ==
[~2021-10-22] MED LIST: BEBTELOVIMAB (EUA) 175 MG/2 ML VIAL IV NR; SODIUM CHLORIDE 0.9% 500 ML 500 ML in EMPTY BAG 1 BAG IV PRN
[2021-10-22 13:29] VITALS: RESP 16; TEMP 97.9
[2021-10-22 13:48] VITALS: BP 150/96; PULSE 90
== END ==
LOC: PROCWHC3 12:58
PROVIDERS: ATTEND Physician Assistant
DX: U07.1 COVID-19 (principal); E66.9 Obesity, unspecified; Z88.1 Allergy status to other antibiotic agents; Z68.43 Body mass index [BMI] 50.0-59.9, adult; Z91.041 Radiographic dye allergy status; Z88.6 Allergy status to analgesic agent; F17.200 Nicotine dependence, unspecified, uncomplicated
CPT/HCPCS: 96374; Q0222; M0222